=== PATIENT | male | born 1930 | race Caucasian/White ===

== ENCOUNTER 2016-10-24 03:25 | Emergency (ER) | payer MEDICARE ==
[2016-10-24] MEDS ORDERED: SODIUM CHLORIDE 0.9% 1,000 ML IV STA (03:39)
[2016-10-24] MEDS ORDERED: ONDANSETRON 4 MG/2 ML VIAL IVP STA (03:39)
--- NOTE | 2016-10-24 04:31 | ED ---
General Adult HPI - General Source: patient, RN notes reviewed Mode of arrival: wheelchair Limitations: no limitations <Ana M Espinoza - Last Filed: 10/24/16 04:32> <Enzo Alvarez - Last Filed: 10/24/16 07:24> - General Chief complaint: Nausea/Vomiting/Diarrhea Stated complaint: Chest Pain/Vomiting Time Seen by Provider: 10/24/16 03:39 - History of Present Illness Initial comments: This is a pleasant 86-year-old male with chief complaint of nausea and vomiting and dizziness for the past 2 hours. Patient reports that he was sleeping in his woke up feeling ill. Patient reports he woke around 1 AM sweating and feeling nauseated. He reports that whenever he lays totally backward he feels dizzy. He states that the room is spinning. He reports that he has a history of vertigo. He did take one Antivert with little relief. He reports that he's continued to dry heave and vomit. Patient denies any abdominal pain or chest pain. He reports normal bowel movements today. He denies any blood in his vomit. Denies any shortness of breath. He denies any sinus congestion or decreased hearing. He reports that he has had this vertigo for many years. He hasn't had an episode recently. (Ana M Espinoza) - Related Data Home Medications Medication Instructions Recorded Confirmed Unable To Assess [Unable to Assess] 10/24/16 10/24/16 Allergies Allergy/AdvReac Type Severity Reaction Status Date / Time No Known Allergies Allergy Verified 10/24/16 03:34 Review of Systems ROS Other: All systems not noted in ROS Statement are negative. <Ana M Espinoza - Last Filed: 10/24/16 04:32> ROS Other: All systems not noted in ROS Statement are negative. <Enzo Alvarez - Last Filed: 10/24/16 07:24> ROS Statement: Those systems with pertinent positive or pertinent negative responses have been documented in the HPI. Past Medical History Past Medical History: Hyperlipidemia, Hypertension Additional Past Medical History / Comment(s): vertigo History of Any Multi-Drug Resistant Organisms: None Reported Past Surgical History: No Surgical Hx Reported Past Psychological History: No Psychological Hx Reported Smoking Status: Never smoker Past Alcohol Use History: None Reported Past Drug Use History: None Reported <Ana M Espinoza - Last Filed: 10/24/16 04:32> General Exam Limitations: no limitations General appearance: alert, in no apparent distress Head exam: Present: atraumatic, normocephalic, normal inspection Eye exam: Present: normal appearance, PERRL, EOMI. Absent: scleral icterus, conjunctival injection, periorbital swelling ENT exam: Present: normal exam, mucous membranes moist Neck exam: Present: normal inspection. Absent: tenderness, meningismus, lymphadenopathy Respiratory exam: Present: normal lung sounds bilaterally. Absent: respiratory distress, wheezes, rales, rhonchi, stridor Cardiovascular Exam: Present: regular rate, normal rhythm, normal heart sounds. Absent: systolic murmur, diastolic murmur, rubs, gallop, clicks GI/Abdominal exam: Present: soft, normal bowel sounds. Absent: distended, tenderness, guarding, rebound, rigid Extremities exam: Present: normal inspection, full ROM, normal capillary refill. Absent: tenderness, pedal edema, joint swelling, calf tenderness Back exam: Present: normal inspection Neurological exam: Present: alert, oriented X3, CN II-XII intact Psychiatric exam: Present: normal affect, normal mood Skin exam: Present: warm, dry, intact, normal color. Absent: rash <Ana M Espinoza - Last Filed: 10/24/16 04:32> <Enzo Alvarez - Last Filed: 10/24/16 07:24> - General Exam Comments Initial Comments: Pleasant 86-year-old male. No distress. (Ana M Espinoza) Medical Decision Making - Radiology Data Radiology results: report reviewed <Ana M Espinoza - Last Filed: 10/24/16 04:32> - Lab Data Result diagrams: 10/24/16 03:45 10/24/16 03:45 <Enzo Alvarez - Last Filed: 10/24/16 07:24> - Medical Decision Making This patient is an 86-year-old man who presented for intractable nausea and vomiting as well as some dizziness. When initially seen, his symptoms were severe enough it was felt he would require admission I therefore discussed his case with Dr. Nathan who was going to admit the patient. However following treatment here the patient is feeling better and requests discharge. I discussed with the patient and his family member that the creatinine level was 2.0 which is abnormal. There is no old labs for comparison, and I recommended admission to have further hydration. The patient declines he does agree to follow with Dr. Nathan to have the creatinine rechecked in 1-2 days. (Enzo Alvarez) - Lab Data Lab Results 10/24/16 10/24/16 10/24/16 Range/Units 03:45 03:45 03:45 WBC 6.4 (3.8-10.6) k/uL RBC 4.54 (4.30-5.90) m/uL Hgb 13.8 (13.0-17.5) gm/dL Hct 42.4 (39.0-53.0) % MCV 93.4 (80.0-100.0) fL MCH 30.4 (25.0-35.0) pg MCHC 32.6 (31.0-37.0) g/dL RDW 14.3 (11.5-15.5) % Plt Count 147 L (150-450) k/uL Neutrophils % (Manual) 56.0 % Band Neutrophils % 2.0 % Lymphocytes % (Manual) 24.0 % Monocytes % (Manual) 9.0 % Eosinophils % (Manual) 9.0 % Neutrophils # (Manual) 3.7 (1.3-7.7) k/uL Lymphocytes # (Manual) 1.5 (1.0-4.8) k/uL Monocytes # (Manual) 0.6 (0-1.0) k/uL Eosinophils # (Manual) 0.6 (0-0.7) k/uL Nucleated RBCs 0 (0-0) /100 WBC Large Platelets Present Poikilocytosis (manual Present Anisocytosis (manual) Present Sodium 143 (137-145) mmol/L Potassium 4.4 (3.5-5.1) mmol/L Chloride 111 H (98-107) mmol/L Carbon Dioxide 20 L (22-30) mmol/L Anion Gap 12 mmol/L BUN 38 H (9-20) mg/dL Creatinine 2.00 H (0.66-1.25) mg/dL Est GFR (MDRD) Af Amer 38 (>60 ml/min/1.73 sqM) Est GFR (MDRD) Non-Af 32 (>60 ml/min/1.73 sqM) Glucose 135 H (74-99) mg/dL Calcium 9.3 (8.4-10.2) mg/dL Total Bilirubin 1.2 (0.2-1.3) mg/dL AST 25 (17-59) U/L ALT 27 (21-72) U/L Alkaline Phosphatase 56 (38-126) U/L Total Creatine Kinase 49 L (55-170) U/L CK-MB (CK-2) 0.6 (0.0-2.4) ng/mL CK-MB (CK-2) Rel Index 1.2 Troponin I <0.012 (0.000-0.034) ng/mL Total Protein 8.0 (6.3-8.2) g/dL Albumin 4.2 (3.5-5.0) g/dL Amylase 79 (30-110) U/L Lipase 211 (23-300) U/L 10/24/16 04:32 EKG shows sinus bradycardia with first-degree AV block. Left axis deviation. Ventricular rate of 50 bpm. DE interval 282 ms. QRS duration 86. QT QTc is 466/457 ms. No evidence of ST elevation or T-wave inversion. (Ana M Espinoza) Disposition <Ana M Espinoza - Last Filed: 10/24/16 04:32> <Enzo Alvarez - Last Filed: 10/24/16 07:24> Clinical Impression: Nausea and vomiting, Acute renal failure Narrative: Possible pneumonia (Enzo Alvarez) Disposition: HOME SELF-CARE Condition: Fair Referrals: Crow Nathan MD [Primary Care Provider] - 1-2 days
[2016-10-24 04:49] LABS: Calcium 9.3 mg/dL (8.4-10.2); Potassium 4.4 mmol/L (3.5-5.1); Total Bilirubin 1.2 mg/dL (0.2-1.3)
[2016-10-24 05:07] LABS: Creatine Kinase 49 U/L (55-170)
--- NOTE | 2016-10-24 05:09 | XR ---
EXAM: XR Chest, 2 Views CLINICAL HISTORY: Reason: pain TECHNIQUE: Frontal and lateral views of the chest. COMPARISON: No relevant prior studies available. FINDINGS: Lungs: Medial left lower lobe opacities, atelectasis versus consolidation. Pleural space: Unremarkable. No pneumothorax. Heart: Cardiac silhouette is mildly enlarged. Mediastinum: Unremarkable. Bones/joints: Unremarkable. IMPRESSION: 1. Medial left lower lobe opacities, likely atelectasis versus consolidation. Correlate for pneumonia. 2. Cardiac silhouette is mildly enlarged.
--- NOTE | 2016-10-24 05:12 | XR ---
EXAM: XR Abdomen, 1 View CLINICAL HISTORY: Reason: pain TECHNIQUE: Frontal supine view of the abdomen/pelvis. COMPARISON: No relevant prior studies available. FINDINGS: Gastrointestinal tract: No dilated, air-filled loops of bowel to suggest obstruction. No free air. Bones/joints: Multilevel degenerative changes of the thoracolumbar spine. IMPRESSION: No dilated, air-filled loops of bowel to suggest obstruction. No free air.
[2016-10-24 05:21] LABS: Creatine Kinase MB 0.6 ng/mL (0.0-2.4); Troponin I <0.012 ng/mL (0.000-0.034)
[2016-10-24 05:22] LABS: Aty Lym Flag Slight; CH 31.4; CHCM 33.9; HCT 42.4 % (39.0-53.0); HDW 2.71; HGB 13.8 gm/dL (13.0-17.5); MCH 30.4 pg (25.0-35.0); MCHC 32.6 g/dL (31.0-37.0); MCV 93.4 fL (80.0-100.0); Mean Platelet Volume 7.9; RBC 4.54 m/uL (4.30-5.90); RDW 14.3 % (11.5-15.5); WBC 6.4 k/uL (3.8-10.6); WBC (Perox) 6.18
[2016-10-24] MEDS ORDERED: ACETAMINOPHEN TAB 325 MG TAB PO PRN (06:43)
[2016-10-24] MEDS ORDERED: NALOXONE 0.4 MG/ML 1 ML VIAL IV PRN (06:43)
[2016-10-24] MEDS ORDERED: DOCUSATE 100 MG CAP PO PRN (06:43)
[2016-10-24] MEDS ORDERED: ONDANSETRON 4 MG/2 ML VIAL IVP PRN (06:43)
[2016-10-24] MEDS ORDERED: SODIUM CHLORIDE 0.9% 1,000 ML IV SCH (06:45)
[2016-10-24 06:46] LABS: Add Differential Manual Differential
[2016-10-24] MEDS ORDERED: AZITHROMYCIN 500 MG TAB PO STA (06:47)
[2016-10-24 06:48] VITALS: RESP 16
[2016-10-24 06:49] LABS: Nucleated Red Blood Cells 0 /100 WBC (0-0); Total Cells Counted 100
[2016-10-24 06:53] LABS: Large Platelets Present
[2016-10-24 07:38] VITALS: BP 164/81; PULSE 63; TEMP 97
[2016-10-24] MEDS ORDERED: FAMOTIDINE 20 MG TAB PO SCH (09:00)
[2016-10-25] MEDS ORDERED: AZITHROMYCIN 500 MG TAB PO SCH (09:00)
== END 2016-10-24 07:37 | disposition home or self-care (01) ==
LOC: EC 03:25 → 5MS5E 06:43 → UNDOADMOB 06:43 → EC 07:37
DX: N17.9 Acute kidney failure, unspecified (principal); I44.0 Atrioventricular block, first degree; R00.1 Bradycardia, unspecified; R11.2 Nausea with vomiting, unspecified; R42 Dizziness and giddiness
CPT/HCPCS: 36415; 93005; 80053; 82150; 82550; 82553; 83690; 84484; 85025; 71020; 74000; 99284; 96374; 96361; J2405

== ENCOUNTER 2016-11-07 08:57 | Inpatient (IN) | payer MEDICARE ==
[2016-11-07] MEDS ORDERED: LORazepam 2 MG/ML SYRINGE IV STA (09:26)
[2016-11-07] MEDS ORDERED: MECLIZINE 12.5 MG TAB PO STA (09:26)
[2016-11-07] MEDS ORDERED: METOCLOPRAMIDE 5 MG/ML 2 ML VIAL IVP STA (09:26)
--- NOTE | 2016-11-07 09:29 | ED ---
General Adult HPI - General Chief complaint: Dizziness Stated complaint: vertigo Time Seen by Provider: 11/07/16 09:17 Source: patient, RN notes reviewed Mode of arrival: wheelchair Limitations: no limitations - History of Present Illness Initial comments: Patient is a pleasant 86-year-old male presenting to emergency department complaining of dizziness. Onset was 2 weeks ago. Onset was sudden and has been her system. Symptoms are worse with getting up and position changes. Patient has a spinning type sensation. Patient states it is difficult to walk secondary to dizziness. No nausea vomiting. No sick a few. No weakness or confusion. Patient did have similar symptoms once previously associated with vertigo. - Related Data Home Medications Medication Instructions Recorded Confirmed Allopurinol [Zyloprim] 300 mg PO DAILY PRN 11/07/16 11/07/16 Aspirin EC [Ecotrin Low Dose] 81 mg PO DAILY 11/07/16 11/07/16 Bisoprolol-Hctz 5-6.25 mg [Ziac 1 tab PO DAILY 11/07/16 11/07/16 5-6.25] Meclizine [Antivert] 12.5 - 25 mg PO QID PRN 11/07/16 11/07/16 Unkown Cholesterol Med 1 tab PO DAILY 11/07/16 11/07/16 Allergies Allergy/AdvReac Type Severity Reaction Status Date / Time No Known Allergies Allergy Verified 11/07/16 09:58 Review of Systems ROS Statement: Those systems with pertinent positive or pertinent negative responses have been documented in the HPI. ROS Other: All systems not noted in ROS Statement are negative. Constitutional: Denies: fever Eyes: Denies: eye pain ENT: Denies: ear pain Respiratory: Denies: cough Cardiovascular: Denies: chest pain Endocrine: Denies: fatigue Gastrointestinal: Denies: abdominal pain Genitourinary: Denies: dysuria Musculoskeletal: Reports: arthralgia (Somewhat chronic, right knee worse the past few weeks.). Denies: back pain Skin: Denies: rash Neurological: Reports: vertigo. Denies: headache, weakness, numbness, paresthesias, confusion Past Medical History Past Medical History: Hyperlipidemia, Hypertension Additional Past Medical History / Comment(s): vertigo History of Any Multi-Drug Resistant Organisms: None Reported Past Surgical History: No Surgical Hx Reported Past Psychological History: No Psychological Hx Reported Smoking Status: Never smoker Past Alcohol Use History: None Reported Past Drug Use History: None Reported General Exam Limitations: no limitations General appearance: alert, in no apparent distress Head exam: Present: atraumatic Eye exam: Present: normal appearance, PERRL, EOMI. Absent: nystagmus ENT exam: Present: normal oropharynx Neck exam: Present: normal inspection Respiratory exam: Present: normal lung sounds bilaterally Cardiovascular Exam: Present: regular rate, normal rhythm GI/Abdominal exam: Present: soft. Absent: tenderness Extremities exam: Present: other (Right anterior knee with minimal swelling. No warmth or erythema. No posterior swelling or discomfort. No calf tenderness.). Absent: pedal edema, calf tenderness Neurological exam: Present: alert, CN II-XII intact. Absent: motor sensory deficit Expanded Speech: Present: fluid speech Cranial nerves: EOM's Intact: Normal, Facial Sensation: Normal Cerebellar function: Finger to Nose: Normal Sensory exam: Upper Extremity Light Touch: Normal, Lower Extremity Light Touch: Normal Motor strength exam: RUE: 5, LUE: 5, RLE: 5, LLE: 5 Eye Response: (4) open spontaneously Motor Response: (6) obeys commands Verbal Response: (5) oriented Psychiatric exam: Present: normal affect, normal mood Skin exam: Present: normal color Course Vital Signs 11/07/16 11/07/16 11/07/16 08:59 10:00 11:16 Temperature 98.2 F Pulse Rate 87 86 88 Respiratory 18 18 20 Rate Blood Pressure 135/84 119/79 125/72 O2 Sat by Pulse 98 94 L 94 L Oximetry EKG Findings - EKG Comments: EKG Findings:: Sinus rhythm at 85. First-degree AV block with MI of 256. QRS 86. QT 390. QTC 464. Left axis. LVH criteria. No acute ST change. Medical Decision Making - Medical Decision Making Patient reexamined and resting comfortably in bed. Patient does feel better. Patient did attempt to ambulate unsuccessfully. Dr. Nathan has been paged. - Lab Data Result diagrams: 11/07/16 09:15 11/07/16 09:15 Lab Results 11/07/16 11/07/16 11/07/16 Range/Units 09:15 09:15 09:15 WBC 6.6 (3.8-10.6) k/uL RBC 4.67 (4.30-5.90) m/uL Hgb 14.7 (13.0-17.5) gm/dL Hct 44.1 (39.0-53.0) % MCV 94.3 (80.0-100.0) fL MCH 31.5 (25.0-35.0) pg MCHC 33.3 (31.0-37.0) g/dL RDW 14.1 (11.5-15.5) % Plt Count 184 (150-450) k/uL Neutrophils % 61 % Lymphocytes % 23 % Monocytes % 9 % Eosinophils % 3 % Basophils % 0 % Neutrophils # 4.1 (1.3-7.7) k/uL Lymphocytes # 1.5 (1.0-4.8) k/uL Monocytes # 0.6 (0-1.0) k/uL Eosinophils # 0.2 (0-0.7) k/uL Basophils # 0.0 (0-0.2) k/uL PT 11.1 (9.0-12.0) sec INR 1.1 (<1.1) Sodium 142 (137-145) mmol/L Potassium 4.3 (3.5-5.1) mmol/L Chloride 108 H (98-107) mmol/L Carbon Dioxide 22 (22-30) mmol/L Anion Gap 12 mmol/L BUN 33 H (9-20) mg/dL Creatinine 1.81 H (0.66-1.25) mg/dL Est GFR (MDRD) Af Amer 43 (>60 ml/min/1.73 sqM) Est GFR (MDRD) Non-Af 36 (>60 ml/min/1.73 sqM) Glucose 111 H (74-99) mg/dL Calcium 9.3 (8.4-10.2) mg/dL Total Bilirubin 2.1 H (0.2-1.3) mg/dL AST 24 (17-59) U/L ALT 20 L (21-72) U/L Alkaline Phosphatase 70 (38-126) U/L Troponin I (0.000-0.034) ng/mL Total Protein 7.9 (6.3-8.2) g/dL Albumin 4.2 (3.5-5.0) g/dL 11/07/16 Range/Units 09:15 WBC (3.8-10.6) k/uL RBC (4.30-5.90) m/uL Hgb (13.0-17.5) gm/dL Hct (39.0-53.0) % MCV (80.0-100.0) fL MCH (25.0-35.0) pg MCHC (31.0-37.0) g/dL RDW (11.5-15.5) % Plt Count (150-450) k/uL Neutrophils % % Lymphocytes % % Monocytes % % Eosinophils % % Basophils % % Neutrophils # (1.3-7.7) k/uL Lymphocytes # (1.0-4.8) k/uL Monocytes # (0-1.0) k/uL Eosinophils # (0-0.7) k/uL Basophils # (0-0.2) k/uL PT (9.0-12.0) sec INR (<1.1) Sodium (137-145) mmol/L Potassium (3.5-5.1) mmol/L Chloride (98-107) mmol/L Carbon Dioxide (22-30) mmol/L Anion Gap mmol/L BUN (9-20) mg/dL Creatinine (0.66-1.25) mg/dL Est GFR (MDRD) Af Amer (>60 ml/min/1.73 sqM) Est GFR (MDRD) Non-Af (>60 ml/min/1.73 sqM) Glucose (74-99) mg/dL Calcium (8.4-10.2) mg/dL Total Bilirubin (0.2-1.3) mg/dL AST (17-59) U/L ALT (21-72) U/L Alkaline Phosphatase (38-126) U/L Troponin I <0.012 (0.000-0.034) ng/mL Total Protein (6.3-8.2) g/dL Albumin (3.5-5.0) g/dL - Radiology Data Radiology results: report reviewed (Computed tomography scan of the brain shows mild valeria- Ventricular white matter ischemic type changes.) Disposition Clinical Impression: Vertigo Disposition: ADMITTED IP TO THIS [facility] Referrals: Crow Nathan MD [Primary Care Provider] - 1-2 days Time of Disposition: 11:46
[2016-11-07 09:55] LABS: Basophils % (A) 0 %; Eosinophils # (A) 0.2 k/uL (0-0.7); Eosinophils % (A) 3 %; HCT 44.1 % (39.0-53.0); HDW 2.56; HGB 14.7 gm/dL (13.0-17.5); Luc # (Auto) 0.21; Luc % (Auto) 3; Lymphocytes # (A) 1.5 k/uL (1.0-4.8); Lymphocytes % (A) 23 %; MCH 31.5 pg (25.0-35.0); MCHC 33.3 g/dL (31.0-37.0); MCV 94.3 fL (80.0-100.0); Mean Platelet Volume 7.8; Monocytes # (A) 0.6 k/uL (0-1.0); Monocytes % (A) 9 %; Neutrophils # (A) 4.1 k/uL (1.3-7.7); Neutrophils % (A) 61 %; RBC 4.67 m/uL (4.30-5.90); RDW 14.1 % (11.5-15.5); WBC 6.6 k/uL (3.8-10.6); WBC (Perox) 6.68
[2016-11-07 09:59] LABS: INR 1.1 (<1.1); Prothrombin Time 11.1 sec (9.0-12.0)
[2016-11-07 10:03] LABS: Calcium 9.3 mg/dL (8.4-10.2); Potassium 4.3 mmol/L (3.5-5.1); Total Bilirubin 2.1 mg/dL (0.2-1.3); Total Protein 7.9 g/dL (6.3-8.2)
--- NOTE | 2016-11-07 11:17 | CT ---
EXAMINATION TYPE: CT brain wo con DATE OF EXAM: 11/07/2016 10:08 AM COMPARISON: None INDICATION: dizziness DLP: 1040 mGycm, Automated exposure control for dose reduction was used. CONTRAST: None CT of the brain is performed utilizing 3 mm thick sections through the posterior fossa and 3 mm thick sections through the remaining calvarium. Study is performed within 24 hours of arrival to the hosp [facility]. No abnormal hyperdensity is present to suggest an acute intracranial hemorrhage. No mass lesion is evident. No acute infarcts are evident. There is some mild periventricular white matter hypodensity, likely on the basis of chronic white matter ischemic changes. Ventricles and sulci are appropriate for the patient age. Paranasal sinuses and mastoid air cells within the [id number] are clear. IMPRESSIONS: 1. Mild periventricular white matter ischemic type changes.
[2016-11-07] MEDS ORDERED: SCOPOLAMINE 1.5MG/72HR PATCH TRANSDERM STA (11:45)
[2016-11-07] MEDS ORDERED: NALOXONE 0.4 MG/ML 1 ML VIAL IV PRN (11:47)
[2016-11-07] MEDS ORDERED: MECLIZINE 25 MG TAB PO PRN (11:49)
[2016-11-07] MEDS: METOCLOPRAMIDE 5 MG/ML 2 ML VIAL IVP SCH ×2 (15:23→18:15)
[2016-11-07] MEDS: SODIUM CHLORIDE 0.9% 1,000 ML IV SCH (16:36)
[2016-11-07] MEDS ORDERED: ALLOPURINOL 300 MG TAB PO PRN (18:08)
[2016-11-08] MEDS: METOCLOPRAMIDE 5 MG/ML 2 ML VIAL IVP SCH ×5 (00:04→23:03)
[2016-11-08] MEDS: ASPIRIN 81 MG CHEW PO SCH (08:23)
[2016-11-08] MEDS: BISOPROLOL-HCTZ 5-6.25 MG 1 EACH TAB PO SCH (08:23)
[2016-11-08] MEDS ORDERED: ACETAMINOPHEN TAB 325 MG TAB PO PRN (08:39)
--- NOTE | 2016-11-08 10:36 | US ---
EXAMINATION TYPE: US carotid duplex BILAT DATE OF EXAM: 11/08/2016 10:27 AM COMPARISON: NONE CLINICAL HISTORY: Rule out stenosis. Vertigo EXAM MEASUREMENTS: RIGHT: Peak Systolic Velocity (PSV) cm/sec ----- Right CCA: 75.7 ----- Right ICA: 64.0 ----- Right ECA: 75.7 ICA/CCA ratio: 0.8 RIGHT: End Diastole cm/sec ----- Right CCA: 16.2 ----- Right ICA: 19.3 ----- Right ECA: 5.9 LEFT: Peak Systolic Velocity (PSV) cm/sec ----- Left CCA: 100.4 ----- Left ICA: 88.6 ----- Left ECA: 64.3 ICA/CCA ratio: 0.9 LEFT: End Diastole cm/sec ----- Left CCA: 18.1 ----- Left ICA: 30.9 ----- Left ECA: 6.7 VERTEBRALS (direction of flow): Right Vertebral: Antegrade Left Vertebral: Antegrade No elevated velocities, no significant stenosis IMPRESSION: 1. Intimal thickening with no significant hemodynamic stenosis bilaterally.
--- NOTE | 2016-11-08 11:50 | ECHOF ---
Referral Reason:lv fxn MEASUREMENTS -------- HEIGHT: 170.2 cm WEIGHT: 90.3 kg BP: 104/62 RVIDd: 3.5 cm (< 3.3) IVSd: 1.3 cm (0.6 - 1.1) LVIDd: 5.0 cm (3.9 - 5.3) LVPWd: 1.3 cm (0.6 - 1.1) IVSs: 1.9 cm LVIDs: 3.9 cm LVPWs: 1.8 cm LAESV Index (A-L): 14.16 ml/m Ao Diam: 5.0 cm (2.0 - 3.7) AV Cusp: 2.4 cm (1.5 - 2.6) LA Diam: 3.1 cm (2.7 - 3.8) MV EXCURSION: 13.275 mm (> 18.000) MV EF SLOPE: 137 mm/s (70 - 150) EPSS: 0.9 cm MV E Suman: 0.52 m/s MV DecT: 334 ms MV A Suman: 1.03 m/s MV E/A Ratio: 0.51 AR PHT: 891 ms RAP: 5.00 mmHg RVSP: 27.79 mmHg FINDINGS -------- Sinus rhythm. This was a technically adequate study. There is mild concentric left ventricular hypertrophy. Overall left ventricular systolic function is normal with, an EF between 55 - 60 %. The right ventricle is normal in size and function. Normal LA size by volume 22+/-6 ml/m2. The right atrium was not well visualized. There is mild aortic valve sclerosis. There is mild aortic regurgitation. The mitral valve leaflets are mildly thickened. Mild mitral regurgitation is present. Trace tricuspid regurgitation present. There is no evidence of pulmonary hypertension. The right ventricular systolic pressure, as measured by Doppler, is 27.79mmHg. The pulmonic valve was not well visualized. 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 Supra Sternal not well visulized. IVC Not well visulized. The pericardium is normal. There is no pericardial effusion. CONCLUSIONS -------- 1. Sinus rhythm. 2. There is no evidence of pulmonary hypertension. 3. The pulmonic valve was not well visualized. 4. 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 5. Supra Sternal not well visulized. 6. IVC Not well visulized. 7. There is no pericardial effusion. 8. This was a technically adequate study. 9. There is mild concentric left ventricular hypertrophy. 10. Overall left ventricular systolic function is normal with, an EF between 55 - 60 %. 11. Normal LA size by volume 22+/-6 ml/m2. 12. The right atrium was not well visualized. Due to dilated ascending aorta. 13. There is mild aortic valve sclerosis. 14. There is mild aortic regurgitation. 15. Trace tricuspid regurgitation present. [employer] MANAGER: Homar Ashley RDCS
[2016-11-08] MEDS: SODIUM CHLORIDE 0.9% 1,000 ML IV SCH (12:45)
[2016-11-08] MEDS ORDERED: MECLIZINE 25 MG TAB PO PRN (14:58)
--- NOTE | 2016-11-08 14:58 | P.PN ---
Subjective 86-year-old male being seen and examined this morning continues to report having a sensation of dizziness. Patient states the symptoms seem to be worse with position changes. Describes it as a spinning type sensation. Patient states it's difficult to ambulate because of the dizziness. Patient did have an echocardiogram done November 08 showed left ventricular systolic function normal with an EF between 55 and 60% no evidence of pulmonary hypertension. Bilateral carotid Doppler study showed no significant carotid stenosis CAT scan of the brain done in the emergency room show mild periventricular white matter ischemic type changes MRI of the brain pending patient remains afebrile and on room air temp is 97 blood pressure 117/74 heart rate in the 60s to 70s Dr. Álvarez consultation pending Objective - Vital Signs Vital signs: Vital Signs Temp 97.4 F L 11/08/16 14:35 Pulse 69 11/08/16 14:35 Resp 16 11/08/16 14:35 BP 117/74 11/08/16 14:35 Pulse Ox 93 L 11/08/16 14:35 Intake & Output 11/07/16 11/08/16 11/08/16 18:59 06:59 18:59 Intake Total 60 200 Balance 60 200 Weight 90.4 kg 89.4 kg Intake: Intake, IV Titration 60 Amount Sodium Chloride 0.9% 1, 60 000 ml @ 20 mls/hr IV . Q24H [facility] Rx#:[id number] Oral 200 Other: Voiding Method Toilet Toilet # Voids 1 1 1 - Exam Physical exam 86-year-old gentleman looking older than stated age sitting up in bed continues to report a dizzy sensation Lungs essentially clear adequate air movement to 93% on room air Heart S1-S2 audible regular Abdomen soft nontender not distended no nausea no vomiting Extremities no edema - Labs CBC & Chem 7: 11/07/16 09:15 11/07/16 09:15 Assessment and Plan Plan: Impression Present on admission dizziness lightheadedness suspect vertigo Computed tomography scan of the brain on admission shows mild valeria-ventricle white matter ischemic type changes Echocardiogram Nov 08 2016 no evidence of pulmonary hypertension left ventricular systolic function normal EF between 55 and 60% Bilateral carotid Doppler studies no evidence of carotid artery stenosis Plan Await Dr. Sage's eval pending follow-up on the results of the MRI pending Resume home meds as appropriate PT OT eval Fall precautions DVT and GI prophylaxis Further recommendations pending The above dictated assessment and findings were discussed with dr manrique . Impression and the plan of care have been dictated as directed. Carlota Renner nurse practitioner acting as a scribe for dr cunningham
--- NOTE | 2016-11-08 17:53 | MR ---
EXAMINATION TYPE: MR brain wo/w con DATE OF EXAM: 11/08/2016 2:16 PM COMPARISON: NONE HISTORY: Vertigo CONTRAST: Performed utilizing 18 mL intravenous MultiHance gadolinium contrast. TECHNIQUE: Multiplanar, multiecho imaging on a 3.0 Saumya magnet is performed through the brain. Stud y is performed within 24 hours of arrival to the hospital. The craniovertebral junction is normal. The pituitary is normal. Diffusion-weighted imaging is performed. No abnormal hyperintensity is present to suggest an acute i ntracranial infarct or acute ischemic change. There are multiple scattered punctate areas of hyperintensity on T2 and Inversion Recovery weighted s equences which are non-specific but can be related to microvascular ischemic changes. Ventricles and sulci are mildly prominent for the patient age. No suspicious enhancement is identified. 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 This is not identified on the coronal reconstructed images. Subtle thickening may be on the sagittal plane and reconstructe d images. Additional evaluation with [facility] [place] is recommended. IMPRESSIONS: 1. Atrophy with periventricular and deep white matter chronic appearing ischemic changes. 2. 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 [facility] [place] is recommended for additional evaluatio n.
[2016-11-08] MEDS ORDERED: FAMOTIDINE 20 MG TAB PO SCH (21:00)
--- NOTE | 2016-11-09 05:07 | HP ---
DATE OF ADMISSION: CHIEF COMPLAINT: Loss of balance and dizziness. HISTORY OF PRESENT ILLNESS: This is another admission for this fairly healthy 86-year-old white male. He has been having dizziness over the last 2 to 3 weeks and it got steadily worse. It is likely due to labyrinthitis. It is positional. He gets a lot worse when he gets up, moves around, turns suddenly, etc. He came to the emergency room because he was having trouble ambulating safely. He states he has lost his "balance". He has had no focal neurologic deficits, chest pain, palpitations, changes in blood pressure, etc. REVIEW OF SYSTEMS: He has had no other complaints. He has had no diplopia, sensory motor findings, etc. Past medical history, family history and personal social histories are otherwise unremarkable. He is not allergic to any medication and he uses meclizine 12.5 one or two 3 or 4 times a day as needed at home. He is on allopurinol 300 mg a day and bisoprolol hydrochlorothiazide 5/6.25 once a day for blood pressure. He is also on aspirin and vitamin D. The remainder of his history is unremarkable. He does not drink or smoke. PHYSICAL EXAMINATION: Blood pressure 150/76 with a pulse of 56 and regular, respirations 12 and he is afebrile. GENERAL: He appeared to be well-developed, well-nourished in no acute distress. Skin color is normal. Skin is warm and dry. Lymph nodes are not enlarged. Head, ears, eyes, nose, mouth, and throat were normal. Neck veins not distended. Thyroid is not enlarged. Carotids normal. Chest is clear. Cardiac exam is normal with normal sinus rhythm with no murmurs or extra sounds. ABDOMEN: Soft, nontender. EXTREMITIES: Normal. NEUROLOGICAL: He is intact. He is admitted to the hospital with diagnoses: 1. Labyrinthitis with vertigo and ataxia with nausea and vomiting. 2. Hypertension. PLAN: 1. Bed rest. 2. IV fluids. 3. Carotid duplex imaging. 4. CT of the brain. 5. Echocardiogram. 6. ENT consult.
--- NOTE | 2016-11-09 05:09 | PN ---
DATE OF SERVICE: 11/08/2016 CHIEF COMPLAINT: Labyrinthitis. HISTORY OF PRESENT ILLNESS: The gentleman is about the same. He has had no new problems. Vital signs are normal and he has had no new neurologic experiences. PHYSICAL EXAM: Carotids are normal. Chest is clear. Cardiac exam is normal. ABDOMEN: Soft, nontender. He is awake, alert and oriented. IMPRESSION: Labyrinthitis. PLAN: Continued the workup today and await results.
[2016-11-09] MEDS: METOCLOPRAMIDE 5 MG/ML 2 ML VIAL IVP SCH ×3 (05:25→19:30)
[2016-11-09 07:43] LABS: Basophils % (A) 0 %; CHCM 33.2; Eosinophils # (A) 0.2 k/uL (0-0.7); Eosinophils % (A) 2 %; HCT 41.1 % (39.0-53.0); HDW 2.55; HGB 13.6 gm/dL (13.0-17.5); Luc # (Auto) 0.22; Luc % (Auto) 3; Lymphocytes # (A) 1.8 k/uL (1.0-4.8); Lymphocytes % (A) 26 %; MCH 31.2 pg (25.0-35.0); MCHC 33.2 g/dL (31.0-37.0); MCV 93.9 fL (80.0-100.0); Mean Platelet Volume 7.5; Monocytes # (A) 0.5 k/uL (0-1.0); Monocytes % (A) 7 %; Neutrophils # (A) 4.1 k/uL (1.3-7.7); Neutrophils % (A) 61 %; RBC 4.37 m/uL (4.30-5.90); WBC 6.7 k/uL (3.8-10.6); WBC (Perox) 6.59
[2016-11-09 07:45] LABS: Calcium 9.3 mg/dL (8.4-10.2); Potassium 4.3 mmol/L (3.5-5.1); Total Bilirubin 2.6 mg/dL (0.2-1.3); Total Protein 7.6 g/dL (6.3-8.2)
[2016-11-09] MEDS: BISOPROLOL-HCTZ 5-6.25 MG 1 EACH TAB PO SCH (08:10)
[2016-11-09] MEDS: ASPIRIN 81 MG CHEW PO SCH (08:10)
--- NOTE | 2016-11-09 12:18 | P.PN ---
Subjective 86-year-old male seen and evaluated this morning sitting up on the edge of the bed physical therapy at the bedside patient is not able to ambulate with physical therapy secondary to patient reporting room feels like it's spinning dizzy like may legs could give out. Patient did have an MRI of the brain with and without contrast the distal tip of the basilar artery appears to expand suggestive of an aneurysm at the tip recommending an MRA [place]. It shows deep white matter chronic appearing ischemic changes with atrophy with periventricular Objective - Vital Signs Vital signs: Vital Signs Temp 97.8 F 11/09/16 07:26 Pulse 70 11/09/16 07:26 Resp 16 11/09/16 07:26 BP 112/71 11/09/16 07:26 Pulse Ox 94 L 11/09/16 07:26 Intake & Output 11/08/16 11/09/16 11/09/16 18:59 06:59 18:59 Intake Total 200 590 Balance 200 590 Weight 89.4 kg Intake: Oral 200 590 Other: Voiding Method Toilet # Voids 2 1 1 - Exam Physical exam 86-year-old gentleman sitting up on the edge of the bed family at bedside patient continues to feel dizzy like the room is spinning. He states he's not able to walk and feels unsteady Lungs essentially clear adequate air movement to 93% on room air no cough noted Heart S1-S2 audible regular denying chest pain Abdomen soft nontender not distended no nausea no vomiting Extremities no edema moves all extremities appropriately. Did note physical therapy indicates patient sways uncrosses his feet is unsteady when up ambulating - Labs CBC & Chem 7: 11/09/16 06:48 11/09/16 06:48 Labs: Abnormal Lab Results - Last 24 Hours (Table) 11/09/16 Range/Units 06:48 Chloride 109 H (98-107) mmol/L Carbon Dioxide 21 L (22-30) mmol/L BUN 30 H (9-20) mg/dL Creatinine 1.79 H (0.66-1.25) mg/dL Glucose 102 H (74-99) mg/dL Total Bilirubin 2.6 H (0.2-1.3) mg/dL Assessment and Plan Plan: Impression Present on admission dizziness lightheadedness suspect vertigo Computed tomography scan of the brain on admission shows mild valeria-ventricle white matter ischemic type changes Echocardiogram May 22 2017 no evidence of pulmonary hypertension left ventricular systolic function normal EF between 55 and 60% Bilateral carotid Doppler studies no evidence of carotid artery stenosis MRI of the brain 0.6 cm dilatation of the basilar tip suggestive of an aneurysm gait dysfunction inability to ambulate Plan Patient may benefit from subacute rehab follow-up on the results of the MRI pending Resume home meds as appropriate PT OT eval Fall precautions DVT and GI prophylaxis Further recommendations pending The above dictated assessment and findings were discussed with dr manrique . Impression and the plan of care have been dictated as directed. Carlota Renner nurse practitioner acting as a scribe for dr cunningham
--- NOTE | 2016-11-09 14:54 | MR ---
EXAMINATION TYPE: MR angio head wo con DATE OF EXAM: 11/09/2016 2:08 PM COMPARISON: MRI brain 11/08/2016 HISTORY: 86-year-old male abnormal MRI brain TECHNIQUE: High-resolution 3-D [id number] images focusing on the [place] were performed without contrast. FINDINGS: Confirmed is the 6 mm fusiform dilatation of the basilar terminus. Both anterior and posterior circulations are patent without significant stenosis or arterial occlusio n. There is some motion limiting assessment of the anterior cerebral arteries at the A1 A2 junction. No definite aneurysm here. No other aneurysmal change seen. 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 Follow-up as clinically in dicated.
[2016-11-09] MEDS: SODIUM CHLORIDE 0.9% 1,000 ML IV SCH (17:10)
--- NOTE | 2016-11-09 19:21 | P.CNNES ---
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 History of Present Illness: This patient is a 86-year-old right-handed white male who apparently was in his usual state of health until about 2 weeks ago. History is obtained from the patient and his daughter who is at bedside today. The daughter states that 2 weeks ago he developed severe unsteadiness and ataxic gait. He was unable to ambulate due to this dysfunction. He was complaining of dizziness and sense of disequilibrium. The symptoms came on suddenly about 2 weeks ago. Prior to this the patient had been very active according to the daughter and was maintaining his own home and doing things around the house without any difficulties with his gait. The patient was able to mow his lawn and do other things without difficulty and was not using a cane or walker. For the past 2 weeks he has been totally immobilized unable to ambulate. He describes his sense of disequilibrium as his problem as well as weakness in both of his legs. He has been unable to work with physical therapy since admission due to very unsteady gait. The patient was sent for an MRI of the brain yesterday which revealed atrophy with periventricular white matter ischemic changes. 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 We reviewed the results of the MRI and MRA with the patient and his daughter at bedside. His findings suggest possibility of posterior circulation dysfunction possibly related to the basilar tip aneurysm. We would recommend a neurosurgery evaluation of this aneurysm and there further recommendations. We have explained that there are nonsurgical approaches to this type of aneurysm and he would benefit from a neurosurgical consultation for their recommendations. The patient does not appear to have severe nausea vomiting symptoms at this time. He was treated with some Antivert with very minimal improvement in his condition. His speech according to the daughter has been slurred at times but his MRI of the brain fails to reveal any evidence of acute stroke. Apparently he was unable to work with physical therapy today due to the severity of his ataxia and weakness in his legs. Given his current neurological findings it is a concern that the basilar tip aneurysm may be symptomatic. We would recommend a neurosurgery consultation for this patient as soon as possible. Neurology is now been consulted for further evaluation and recommendations. Review of Systems Constitutional: Denies chills, Denies fever Eyes: denies blurred vision, denies pain Ears, nose, mouth and throat: Reports vertigo, Denies headache, Denies sore throat Cardiovascular: Denies chest pain, Denies shortness of breath Respiratory: Denies cough Gastrointestinal: Denies abdominal pain, Denies diarrhea, Denies nausea, Denies vomiting Musculoskeletal: Denies myalgias Integumentary: Denies pruritus, Denies rash Neurological: Reports ataxia, Reports change in speech, Reports motor disturbance, Reports vertigo, Denies numbness, Denies weakness Psychiatric: Denies anxiety, Denies depression Endocrine: Denies fatigue, Denies weight change Past Medical History Past Medical History: Hyperlipidemia, Hypertension Additional Past Medical History / Comment(s): vertigo History of Any Multi-Drug Resistant Organisms: None Reported Past Surgical History: No Surgical Hx Reported Past Psychological History: No Psychological Hx Reported Smoking Status: Never smoker Past Alcohol Use History: None Reported Past Drug Use History: None Reported Medications and Allergies Home Medications Medication Instructions Recorded Confirmed Type Allopurinol [Zyloprim] 300 mg PO DAILY PRN 11/07/16 11/07/16 History Aspirin EC [Ecotrin Low Dose] 81 mg PO DAILY 11/07/16 11/07/16 History Bisoprolol-Hctz 5-6.25 mg [Ziac 1 tab PO DAILY 11/07/16 11/07/16 History 5-6.25] Meclizine [Antivert] 12.5 - 25 mg PO QID PRN 11/07/16 11/07/16 History Allergies Allergy/AdvReac Type Severity Reaction Status Date / Time No Known Allergies Allergy Verified 11/07/16 09:58 Physical Examination - Vital Signs Vital Signs: Vital Signs Temp Pulse Resp BP BP Pulse Ox 11/09/16 13:30 98 F 69 18 120/77 94 L 11/09/16 07:26 97.8 F 70 16 112/71 94 L 11/09/16 00:00 96.3 F L 81 16 124/64 93 L 11/08/16 21:33 97.1 F L 65 16 123/70 94 L 11/08/16 19:30 16 Intake and Output 11/09/16 11/09/16 11/09/16 06:59 14:59 22:59 Intake Total 590 Balance 590 Intake: Oral 590 Other: # Voids 1 1 - Constitutional General appearance: average body habitus, cooperative - EENT EENT: PERRL, mucous membranes moist - Respiratory Respiratory: lungs clear, normal breath sounds - Cardiovascular Cardiovascular: regular rate, normal S1, normal S2 Extremities: no peripheral edema bilaterally - Gastrointestinal Gastrointestinal: normoactive bowel sounds - Integumentary Integumentary: normal - Neurologic Cranial nerve examination: PERRL, EOMI, VFF, V1/V2/V3 grossly intact, face symmetric, tongue midline, intact gag reflex, intact corneal reflex, normal palatal elevation Speech examination: intact Sensorimotor examination: intact Detailed motor examination: grossly full strength in all extremities Motor examination - right side: 4/5: biceps, triceps, wrist flexion, wrist extension, costumer, hip flexors, knee extensors, dorsiflexion, toe extension (EHL) , plantarflexion Motor examination - left side: 4/5: biceps, triceps, wrist flexion, wrist extension, costumer, hip flexors, knee extensors, dorsiflexion, toe extension (EHL) , plantarflexion Detailed sensory examination: intact Reflex and gait examination: intact Reflexes: 1+: ankle, bicep, knee, tricep - Musculoskeletal Musculoskeletal: no pain - Psychiatric Psychiatric: mood/affect appropriate, cooperative Results - Laboratory Findings CBC and BMP: 11/09/16 06:48 11/09/16 06:48 Abnormal Lab Findings: Abnormal Labs 11/07/16 11/09/16 09:15 06:48 Chloride 108 H 109 H Carbon Dioxide 21 L BUN 33 H 30 H Creatinine 1.81 H 1.79 H Glucose 111 H 102 H Total Bilirubin 2.1 H 2.6 H ALT 20 L Assessment and Plan (1) Basilar artery aneurysm Status: Acute Code(s): I72.5 - ANEURYSM OF OTHER PRECEREBRAL ARTERIES (2) Vertigo Status: Acute Code(s): R42 - DIZZINESS AND GIDDINESS (3) Disequilibrium Status: Acute Code(s): R42 - DIZZINESS AND GIDDINESS (4) Gait disorder Status: Acute Code(s): R26.9 - UNSPECIFIED ABNORMALITIES OF GAIT AND MOBILITY Plan: This patient is a 86-year-old male who was admitted to Hospital with symptoms of dizziness and gait ataxia. Patient has been symptomatic for over 2 weeks and has been unable to ambulate at home due to the worsening symptoms. It was felt he may have labyrinthitis. He was treated with Antivert with very little improvement in his condition. He was sent for MRI of the brain which revealed atrophy and periventricular deep white matter ischemic changes. There was evidence of a possible 6 mm basilar tip aneurysm. MRA was recommended. 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 Given the location of this aneurysm and his current neurological symptoms it is a concern that he may have asymptomatic basilar tip aneurysm. We are recommending that he have a neurosurgical consultation as soon as possible for further evaluation of this aneurysm. His neurological exam does not reveal evidence of acute nystagmus that would be more consistent with a acute labyrinthitis or positional vertigo. He has not responded to Antivert as well. We are recommending neurosurgical consultation for their evaluation and recommendations regarding the basilar tip aneurysm. His overall prognosis at this time remains very guarded. Case was discussed at length with the patient and his daughter at bedside. All their questions were answered. We will discuss his MRA results tomorrow with Dr. Nathan and will make further plans for treatment. His overall prognosis at this time remains very guarded. We will continue close neurological follow-up of this patient during this admission. Time with Patient: Greater than 30
[2016-11-09 19:52] VITALS: RESP 16
[2016-11-09] MEDS ORDERED: FAMOTIDINE 20 MG TAB PO SCH (21:00)
[2016-11-10] MEDS: METOCLOPRAMIDE 5 MG/ML 2 ML VIAL IVP SCH ×3 (00:09→13:26)
[2016-11-10 02:27] LABS: Appearance,Urine Clear (Clear); Bilirubin,Urine Negative (Negative); Glucose,Urine (UA) Negative (Negative); Ketones,Urine Negative (Negative); Leukocyte Esterase,Urine Negative (Negative); Nitrite,Urine Negative (Negative); PH, Urine 5.5 (5.0-8.0); Protein,Urine Negative (Negative); Specific Gravity,Urine 1.012 (1.001-1.035); UA Billing (MACRO vs. MICRO) CHEM; Urobilinogen,Urine <2.0 mg/dL (<2.0)
[2016-11-10] MEDS ORDERED: HALOPERIDOL LACTATE 5 MG/ML 1 ML VIAL IM ONE (05:09)
[2016-11-10] MEDS ORDERED: LORazepam 2 MG/ML SYRINGE IM ONE (06:30)
[2016-11-10] MEDS: ASPIRIN 81 MG CHEW PO SCH (08:59)
--- NOTE | 2016-11-10 10:19 | P.DS ---
Providers Date of admission: 11/09/16 13:29 Expected date of discharge: 11/10/16 Attending physician: Crow Nathan Consults: 11/07/16 18:09 Consult Physician Routine Consulting Provider: Roosevelt Álvarez Consult Reason/Comments: labyrinthitis Do you want consulting provider notified?: Yes, Notify in am 11/09/16 10:40 Consult Physician Urgent Consulting Provider: Tyree Garza Consult Reason/Comments: Persistent dizziness Do you want consulting provider notified?: Yes Primary care physician: Crow Nathan Hospital Course: 86-year-old male who states that about 2 weeks ago developed inability to ambulate. Patient states up until 2 weeks ago he was active independent mode his own lawn was able to drive with no difficulties and lived alone Patient stated his legs felt so weak he couldn't coordinate the movement in his legs. Patient developed severe unsteadiness with ataxic gait. Patient was not able to ambulate due to the dysfunction. Patient stated he had a dizziness and a sense of disequilibrium. Patient states up until 2 weeks ago he lived alone and had been able to take care of himself. Given the above information patient was admitted to the services of the attending. Physical therapy and occupational therapy consultation requested. Patient was not able to participate in physical or occupational therapy due to the unsteady gait. Patient was seen by neurology. Dr. Joelle Garza. The MRI of the brain showed atrophy with periventricular low white matter ischemic changes. 6 mm basilar tip aneurysm noted. MRA study confirmed the basilar tip aneurysm. The findings were reviewed with the patient's daughter and patient at the bedside Dr. Garza neurology felt the findings were suggestive of possible posterior circulation dysfunction possibly related to the aneurysm. They recommended a neurosurgical consultation and transfer the patient to a tertiary center for higher level of care. The MRI of the brain failed to reveal any evidence of an acute stroke. The family elected to be transferred to the tertiary center for neurosurgery consultation. Patient and daughter agreed ed case manager pursued transfer to a tertiary center for a neurosurgery consultation Impression discharge diagnoses Present on admission acute severe unsteadiness with ataxic gait unclear etiology Present on admission chronic renal failure stage III likely due to hypertension Acute renal failure present on admission suspect due to poor oral intake Hypertension Present on admission hypertension urgency blood pressure 163/93 Basilar artery aneurysm Status: Acute Code(s): I72.5 - ANEURYSM OF OTHER PRECEREBRAL ARTERIES Vertigo Status: Acute Code(s): R42 - DIZZINESS AND GIDDINESS Disequilibrium Status: Acute Code(s): R42 - DIZZINESS AND GIDDINESS Gait disorder Status: Acute Code(s): R26.9 - UNSPECIFIED ABNORMALITIES OF GAIT AND MOBILITY Present on admission dizziness lightheadedness with gait dysfunction Computed tomography scan of the brain on admission shows mild valeria-ventricle white matter ischemic type changes Echocardiogram Nov 08 2016 no evidence of pulmonary hypertension left ventricular systolic function normal EF between 55 and 60% Bilateral carotid Doppler studies no evidence of carotid artery stenosis MRI of the brain 0.6 cm dilatation of the basilar tip suggestive of an aneurysm gait dysfunction inability to ambulate new-onset 2 week prior Acute physical debility The above dictated assessment and findings were discussed with dr burton Adorno and the plan of care have been dictated as directed. Carlota Renner nurse practitioner acting as a scribe for dr nathan Plan - Discharge Summary Discharge Medication List Allopurinol [Zyloprim] 300 mg PO DAILY PRN 11/07/16 [History] Aspirin EC [Ecotrin Low Dose] 81 mg PO DAILY 11/07/16 [History] Bisoprolol-Hctz 5-6.25 mg [Ziac 5-6.25 MG] 1 tab PO DAILY 11/07/16 [History] Meclizine [Antivert] 12.5 - 25 mg PO QID PRN 11/07/16 [History] Follow up Appointment(s)/Referral(s): Crow Nathan MD [Primary Care Provider] - 1-2 days Roosevelt Álvarez MD [STAFF PHYSICIAN] - 1 Week (MAKE FOLLOW UP APPOINTMENT FOR AFTER DISCHARGE AN OUTPATIENT)
[2016-11-10] MEDS: SODIUM CHLORIDE 0.9% 1,000 ML IV SCH (13:27)
[2016-11-10 14:56] VITALS: BP 117/73; PULSE 79; TEMP 97.7
--- NOTE | 2016-11-10 21:54 | PN ---
CHIEF COMPLAINT: Vertigo with confusion during the night. HISTORY OF PRESENT ILLNESS: This gentleman became delirious during the night. He is not having any headache or any focal neurologic changes. He has had no difficulty with vision or hearing. There is apparently a small aneurysm on the MRA at the base of the brain. PHYSICAL EXAMINATION: Pupils are equal, round and reactive. Gaze is conjugate. Neck is supple. Chest is clear. Cardiac exam is normal. He is very confused. IMPRESSION: 1. Labyrinthitis. 2. Delirium. 3. Aneurysm of basal artery. PLAN: No change in program. However, Neurology feels that he should be transferred to the care of a neurosurgeon, and this will be arranged. He will likely go to [facility]. This will be arranged by the nurse practitioner.
--- NOTE | 2016-11-11 19:30 | PN ---
This patient was found to have an aneurysm in the basal artery area, and it was recommended that the patient be transferred to a tertiary hospital. Case was discussed with Neurosurgery, and they have agreed to take the patient in transfer. This will be arranged by the nurse practitioner.
== END 2016-11-10 16:39 | disposition short-term general hospital (02) | DRG 300 ==
LOC: EC 08:57 → 3OBS 11:47 → 3SUR 20:47 → OBSVTOIN 11-09 13:29
PROVIDERS: ADMIT Family Medicine; ATTEND Family Medicine
DX: I72.5 Aneurysm of other precerebral arteries (principal); N17.9 Acute kidney failure, unspecified; R42 Dizziness and giddiness; E78.5 Hyperlipidemia, unspecified; H83.09 Labyrinthitis, unspecified ear; R26.0 Ataxic gait; I16.0 Hypertensive urgency; I12.9 Hypertensive chronic kidney disease with stage 1 through stage 4 chronic kidney disease, or unspecified chronic kidney disease; N18.3 Chronic kidney disease, stage 3 (moderate); Z79.82 Long term (current) use of aspirin; Z79.899 Other long term (current) drug therapy
CPT/HCPCS: 36415; 70450; 70544; 70553; 80053; 81003; 84484; 85025; 85610; 87086; 93005; 93306; 93880; 96374; 96375; 96376; 99285

== ENCOUNTER → 2017-01-06 | Outpatient (CLI) | payer MEDICARE ==
--- NOTE | 2017-01-06 10:49 | US ---
EXAMINATION TYPE: US venous doppler duplex LE RT DATE OF EXAM: 01/06/2017 10:39 AM COMPARISON: NONE CLINICAL HISTORY: Pain in right lower limb M79.661. Pt states right leg pain, more at right knee SIDE PERFORMED: Right TECHNIQUE: The lower extremity deep venous system is examined utilizing real time linear array sonog gil with graded compression, doppler sonography and color-flow sonography. VESSELS IMAGED: External Iliac Vein (EIV) Common Femoral Vein Deep Femoral Vein Greater Saphenous Vein * Femoral Vein Popliteal Vein Small Saphenous Vein * Proximal Calf Veins (* superficial vessels) Grayscale, color doppler, spectral doppler imaging performed of the deep veins of the lower extremity . There is normal flow, compressibility, vascular waveforms . 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
== END | disposition home or self-care (01) ==
LOC: RADUSWWP 10:20
PROVIDERS: ATTEND Family Medicine
DX: M79.661 Pain in right lower leg (principal)

== ENCOUNTER → 2017-07-21 | Outpatient (CLI) | payer MEDICARE ==
[2017-07-21 09:56] LABS: C Reactive Protein 15.8 mg/L (<10.0)
== END | disposition home or self-care (01) ==
LOC: LABWHC1 09:09
PROVIDERS: ATTEND Physical Medicine & Rehabilitation
DX: M48.062 Spinal stenosis, lumbar region with neurogenic claudication (principal); M51.36 Other intervertebral disc degeneration, lumbar region; M43.16 Spondylolisthesis, lumbar region; M47.817 Spondylosis without myelopathy or radiculopathy, lumbosacral region; M54.16 Radiculopathy, lumbar region; M54.5 Low back pain; M62.81 Muscle weakness (generalized); R20.2 Paresthesia of skin
CPT/HCPCS: 36415; 82550; 85652; 86140

== ENCOUNTER → 2018-12-01 | Outpatient (CLI) | payer MEDICARE ==
--- NOTE | 2018-12-03 23:43 | US ---
EXAMINATION TYPE: US kidneys/renal and bladder DATE OF EXAM: 12/01/2018 COMPARISON: NONE CLINICAL HISTORY: 88-year-old male R35.1 Nocturia, R39.11 Hesitancy. TECHNIQUE: Multiple sonographic images of the kidneys and bladder are obtained. FINDINGS: Right Kidney: 9.7 x 4.9 x 5.3 cm Left Kidney: 9.2 x 5.2 x 4.6 cm Right Kidney: No hydronephrosis. Mid pole cyst measures 2.8 x 2.9 x 3.2 cm. Left Kidney: No hydronephrosis. There are 2 cysts, the first measures 2.7 x 3.8 x 3.2 cm and the seco nd measures 2.9 x 3.3 x 3.2 cm. Bladder: No gross abnormality of the partially urine distended bladder. There is mild prostatomegaly of 4.6 cm impressing on to the posterior bladder base. Bilateral Jets seen: No Normal Post Void Residual: Patient was not able to void, he went in the restroom twice, but was kj ble to empty either time. Post Void Residual Volume: 100.8 mL IMPRESSION: 1. No hydronephrosis. 2. Bilateral renal cysts measuring up to 3.8 cm. 3. Mild prostatomegaly at 4.6 cm. 4. Postvoid bladder volume of 100 mL. Patient attempted to void twice, unsuccessfully. Correlate for possible urinary retention.
== END | disposition home or self-care (01) ==
LOC: RADUSWWP 15:43
PROVIDERS: ATTEND Family Medicine
DX: N28.1 Cyst of kidney, acquired (principal); N40.0 Benign prostatic hyperplasia without lower urinary tract symptoms
CPT/HCPCS: 76770